=== PATIENT | female | born 1965 | race Caucasian/White ===

== ENCOUNTER → 2021-11-27 11:25 | Outpatient (BNVA) | payer OTHER, SELFPAY | PROVIDERS: PCP Pediatrics; Visit Provider Physician Assistant Medical | DX: S60.011A Contusion of right thumb without damage to nail, initial encounter (principal); W23.0XXA Caught, crushed, jammed, or pinched between moving objects, initial encounter | CPT/HCPCS: 73130; 99203 ==

== ENCOUNTER → 2021-11-29 10:03 | Outpatient (BNVA) | payer OTHER, SELFPAY | PROVIDERS: PCP Pediatrics; Visit Provider Internal Medicine | DX: S60.011A Contusion of right thumb without damage to nail, initial encounter (principal); X58.XXXA Exposure to other specified factors, initial encounter | CPT/HCPCS: 99213 ==

== ENCOUNTER → 2021-12-11 13:19 | Outpatient (BNVA) | payer OTHER, SELFPAY | PROVIDERS: PCP Pediatrics; Visit Provider Internal Medicine | DX: S60.011A Contusion of right thumb without damage to nail, initial encounter (principal); X58.XXXA Exposure to other specified factors, initial encounter | CPT/HCPCS: 36415; 85027; 85610; 85730; 99213 ==

== ENCOUNTER → 2021-12-24 10:19 | Outpatient (BNVA) | payer OTHER, SELFPAY | PROVIDERS: PCP Pediatrics; Visit Provider Internal Medicine | DX: S69.91XD Unspecified injury of right wrist, hand and finger(s), subsequent encounter (principal); X58.XXXD Exposure to other specified factors, subsequent encounter | CPT/HCPCS: 99213 ==

== ENCOUNTER 2025-06-02 13:38 | Outpatient (AMB) | payer BC, SELFPAY ==
--- OUTSIDE RECORDS SUMMARY | 2022-12-24 13:05 | XMS_ITS | Encounter Summary ---
Author Organization [facility] Address [address] [place] [phone] Phone Care Team Providers Care Ekg Technician Name Role Phone Constantin Ortiz MD Primary Care Provider + Encounter Details Date Type Department Care Team (Late st Contact Info) Description 12/24/2022 2:05 PM EDT Hospital Encounter [facility] [address] [place] [address] Mary Yarbrough CNP [address] [place] [address] [email or web address] Social History Tobacco Use Types Packs/Day Years Used Date Smoking Tobacco: Every Day Smokeless Tobacco: Never Education Answer Date Recorded Are you interested in more education? Not on brianda e 11/09/2022 Are you concerned about learning? Not on file 11/09/2022 No 11/09/2022 No 11/09/2022 Digital Access Answer Date Recorded No 12/08/2022 No 12/08/2022 Reliable internet access at home? Not on file 12/08/2022 Device with a working camera? Not on file Comments Unknown Sex and Gender Information Value Date Recorded Sex Assigned at Not on file Legal Sex Female 3:01 PM EDT Gender Identity Not on file Sexual Orientation Not on file documented as of this encounter Plan of Treatment Upcoming Encounters Date Type Department Care Team (Late st Contact Info) Description 06/07/2025 9:15 AM EST Office Visit [address] [address] Vesta Griffin PA [address] [place] [address] Nidhi Voss, PT 10 [place] [address] [email or web address] 06/15/2025 3:00 PM EST Office Visit [address] [address] Vesta Griffin PA [address] [place] [address] Nidhi Voss, PT 10 [place] [address] [email or web address] 06/22/2025 2:15 PM EST Office Visit [address] [address] Vesta Griffin PA [address] [place] [address] Nidhi Voss, PT 10 [place] [address] [email or web address] documented as of this encounter Procedures Procedure Name Priority Date/Time Associated Diagnosis Comments XR CHEST PA AND LATERAL 2 VIEWS Urgent/patient waiting 12/24/2022 2:06 PM EDT Fever, unspecified Acute cough documented in this encounter Results * XR CHEST PA AND LATERAL 2 VIEWS (12/24/2022 2:06 PM EDT) Anatomical Region Laterality Modality Chest Computed Radiogr aphy 12/24/2022 2:09 PM EDT Impressions 12/24/2022 2:31 PM EDT No acute abnormality. ATTESTATION: I, Maddison Tao as teaching physician, have reviewed the images for this case and if necessary edited the report originally created by Tyree Caban. Narrative 12/24/2022 2:31 PM EDT XR CHEST PA AND LATERAL 2 VIEWS COMPARISON: None FINDINGS: Devices/Tubes/Lines: None. Lungs: The lungs are clear. No focal consolidation or pulmonary edema. Pleura: No pleural effusion or pneumothorax. Heart/Mediastinum: Normal heart and mediastinum. Bones/Soft Tissues: No significant skeletal abnormality. Procedure Note Maddison Tao MD - 12/24/2022 XR CHEST PA AND LATERAL 2 VIEWS COMPARISON: None FINDINGS: Devices/Tubes/Lines: None. Lungs: The lungs are clear. No focal consolidation or pulmonary edema. Pleura: No pleural effusion or pneumothorax. Heart/Mediastinum: Normal heart and mediastinum. Bones/Soft Tissues: No significant skeletal abnormality. IMPRESSION: No acute abnormality. ATTESTATION: I, Maddison Tao as teaching physician, have reviewed theimages for this case and if necessary edited the report originally createdby Tyree Caban. Mary Yarbrough AVIATION MECHANIC IMG XR CHEST Final Resul t documented in this encounter Visit Diagnoses Not on filedocumented in this encounter Care Teams Ekg Technician Relationship Specialty Start Date End Date Constantin Ortiz MD [address] [place] [phone] PCP - General Internal Medicine 03/14/21 documented as of this encounter Additional Source Comments The information contained in this document represents components of the legal health record. It is not the complete legal health record.[facility]
--- NOTE | 2025-06-02 13:39 | A.PHYSOV_ITS ---
Vital Signs 06/02/25 13:44 Height 5 ft 4 in Weight 130 lb BMI 22.3 Intake Visit Reasons: MRI followup Intake Note: Patient is a 60 year old female here to review her MRI. Clocksmith Required: No Allergies Penicillins Allergy (Unknown, Verified 06/02/25 13:46) Unknown Sulfa (Sulfonamide Antibiotics) Allergy (Unknown, Verified 06/02/25 13:46) Unknown HPI Comments Details: History of Present Illness The patient is a 60-year-old individual presenting with hip pain and back pain management. The patient reports that a previous injection in the hip bursa provided relief, although there is still some soreness upon pressure. The patient experiences sharp, intermittent pain that sometimes radiates from the back to the leg, described as a pinching sensation. The pain is alleviated by changing positions and using a heating pad, and the patient occasionally takes naproxen or Advil for relief. The patient's MRI shows mild to moderate degenerative disc disease and varying degrees of arthritis in the back, with moderate bilateral narrowing at L4-5, more pronounced on the left side. This narrowing may contribute to the development of sciatica, although no obvious pinched nerve is present. The patient has been engaging in physical therapy and exercises to improve flexibility and strength, although the therapy was paused after the injection to allow for rest. The patient is considering resuming physical therapy or continuing with home exercises, and is exploring the possibility of joining a water-based exercise program. Additionally, the MRI revealed cysts in the kidneys and a cyst in the liver, which are being monitored by the patient's primary care provider. Pain Description - Onset: Intermittent sharp pain - Quality: Sharp, pinching sensation - Location: Left side of back radiating to leg - Exacerbating factors: Pressure on the area - Relieving factors: Changing positions, heating pad, naproxen, Advil [facility] Surgical History (Updated 06/02/25 @ 13:50 by Magalys Akhtar MA) H/O hernia repair H/O bilateral oophorectomy Social History Alcohol intake: current Alcohol intake frequency: other Comment: socially Patient Tobacco Use Status: Never used Tobacco Use of substances other than those prescribed or required for medical reasons: No Current occupational status: employed Review of Systems Narrative Review of Systems - Musculoskeletal: Reports intermittent sharp pain in back radiating to leg, soreness in hip bursa. - Neurological: Denies consistent radiating pain into the leg. - Gastrointestinal: Denies any symptoms related to hepatic cyst. - Renal: Denies any symptoms related to renal cysts. Physical Exam Exam Exam: Physical Exam Lumbar Spine: Examination of her lumbar spine, there is no visible swelling or deformity. She is tender to lower lumbar facets. She is otherwise nontender. Full range of motion of the lumbar spine. She does have an increase in pain with facet loading. Special Tests: Lhermittes sign was negative Heel Toe walk is normal Left straight leg raise: Negative Right straight leg raise: Negative Special tests Sapphire test is negative Ganslen's test is negative SI Joint compression test negative Jay test negative Piriformis stretch is negative Lower Extremities: Full range of motion bilateral lower extremities. No calf pain or edema. Neuro: Sensation: Intact to lower extremities bilaterally Strength L2 (Psoas): 5/5 on the left and 5/5 on the right. L3 (Quads): 5/5 on the left and 5/5 on the right. L4 (Ant tibialis): 5/5 on the left and 5/5 on the right. L5 (EHL) 5/5 on the left and 5/5 on the right. S1 (Gastroc): 5/5 on the left and 5/5 on the right. DTR L4: (Patellar) Left 2 Right 2 S1: (Achilles) Left 2 Right 2 Babinski Downgoing No pathologic clonus. No involuntary movement. Vital Signs: BMI result Body Mass Index 22.3 Assessment & Plan Assessment & Plan (1) Lumbar radiculopathy: Code(s): M54.16 - Radiculopathy, lumbar region Category: Medical (2) Lumbar spondylosis: Code(s): M47.816 - Spondylosis without myelopathy or radiculopathy, lumbar region Category: Medical (3) Trochanteric bursitis: Code(s): M70.60 - Trochanteric bursitis, unspecified hip Category: Medical Plan Pain Management - Affect: Pain impacts mobility, causing limping and requiring rest after physical therapy. - Analgesia: Uses naproxen and Advil for pain relief, which helps alleviate symptoms. - Adverse Effects: None reported from medications. - Activities of Daily Living: Pain affects ability to perform exercises and participate in physical therapy. - Aberrant Drug Related Behaviors: None reported. Plan Patient was informed and verbally consented to the use of an ambient scribe for clinic note documentation during this visit. 1. Bursitis The patient reports improvement in hip pain following a bursa injection, with residual soreness upon pressure. Continued monitoring of symptoms is advised, and further injections may be considered if pain persists. 2. Degenerative Disc Disease The MRI indicates mild to moderate degenerative disc disease. Management inclu caroline maintaining physical activity and considering physical therapy to improve flexibility and strength. Home exercises are recommended if physical therapy is not pursued. 3. Arthritis The patient has varying degrees of arthritis in the back. Management involves maintaining an active lifestyle and considering physical therapy or home exercises to manage symptoms and improve joint function. 4. Sciatica Moderate bilateral narrowing at L4-5 may contribute to sciatica. Options include epidural injections if back pain radiates into the thigh. Monitoring symptoms and considering further interventions if necessary is advised. If the patient would like to pursue epidural injection recommend left L4 TFESI. 5. Renal Cysts Renal cysts were identified on MRI. The patient is advised to follow up with [facility] primary care provider for further evaluation and monitoring. 6. Hepatic Cyst A hepatic cyst was noted on MRI. The patient should consult with their primary care provider for further assessment and potential ultrasound evaluation. Coding Level of Care Code Tele Est Pt Level 3 (54230) Diagnoses Lumbar radiculopathy M54.16 Lumbar spondylosis M47.816 Trochanteric bursitis M70.60
[2025-06-02 13:44] VITALS: BMI 22.3
--- OUTSIDE RECORDS SUMMARY | 2025-06-02 19:05 | XMS_ITS | Clinical Summary ---
Author Organization [facility] Address [address] [place] [phone] Phone Care Team Providers Care Flaker Tender Name Role Phone Constantin Ortiz MD Primary Care Provider + Allergies Active Allergy Reactions Criticality Noted Date Comments Penicillins Hives 03/14/2021 Sulfa (Sulfonamide Antibiotics) Rash Low 07/2020 Medications loratadine (CLARITIN) 10 mg tablet Take 10 mg by mouth daily. Active fluticasone propionate (FLONASE) 50 mcg/actuation nasal spray 1 spray by Nasal route daily. Active lisinopril (PRINIVIL,ZESTR IL) 10 MG tablet Take 1 tablet by mouth every morning. 3 Active albuterol 90 mcg/actuation inhaler Inhale 2 puffs into the lungs every 6 (six) hours as needed. 8.5 g 3 Active ADVAIR HFA 230-21 mcg/actuation inhaler Inhale 2 puffs into the lungs 2 (two) times a day. Active albuterol 2.5 mg /3 mL (0.083 %) nebulizer solution Take 1 Vial by nebulization every 6 hours as needed for Wheezing or Shortness of Breath for up to 180 days. 4 Active albuterol 90 mcg/actuation inhaler Inhale 1 puff into the lungs every 6 (six) hours as needed. 5 Active lisinopril (PRINIVIL,ZESTR IL) 20 MG tablet Take 1 tablet by mouth daily. 5 Active predniSONE (DELTASONE) 20 MG tablet Take 1 tablet (20 mg total) by mouth daily. 5 tablet 5 Active Active Problems Problem Noted Date Diagnosed Date COPD, severe 05/08/2023 Overview (10/04/2024): 05/05 - PFT: FEV1/FVC 48%. FEV1 1.25 and 48%. FVC 79%. Abnormal CT scan, chest 07/22/2012 Overview (10/04/2024): 07/26 RML lesion. Repeat 6 mo 01/23 stable. Repeat 12-18 mo 12/26 increased RML density. 03/28 stable. Repeat 12 mo. 11/26 stable, repeat 1 yr 05/30 stable 08/03 LDCT stable Hypercholesteremia 07/20/2012 Overview (10/04/2024): 05/03 ASCVD 9% (1.9%) Allergic rhinitis 12/04/2006 Overview (10/04/2024): seasonal Anxiety 12/04/2006 Overview (10/04/2024): 11/17--high stress, working 7d, 70hrs per week. HTN (hypertension) 12/04/2006 Overview (10/04/2024): 11/17 assoc with stress--catapress patch Encounters Date Type Department Care Team Description 04/18/2025 3:00 PM EDT Office Visit [address] [address] Vesta Griffin PA Menard-Johnston, Erin, PT Trochanteric bursitis of left hip (Primary Dx) 04/13/2025 3:00 PM EDT Office Visit [address] [address] Vesta Griffin PA Menard-Johnston, Erin, PT Trochanteric bursitis of left hip (Primary Dx) 04/11/2025 3:00 PM EDT Office Visit [facility] [address] [place] [address] Vesta Griffin PA Menard-Johnston, Nidhi, PT Trochanteric bursitis of left hip (Primary Dx) 04/06/2025 3:00 PM EDT Office Visit [address] [address] Vesta Griffin, AMARJIT Voss, Nidhi, PT Trochanteric bursitis of left hip (Primary Dx) 04/04/2025 3:00 PM EDT Office Visit [address] [address] Vesta Griffin, AMARJIT Voss, Nidhi, PT Trochanteric bursitis of left hip (Primary Dx) 03/30/2025 7:00 AM EDT Office Visit [address] [address] Vesta Griffin, AMARJIT Voss, Nidhi, PT Trochanteric bursitis of left hip (Primary Dx) 03/28/2025 3:00 PM EDT Office Visit [address] [address] Vesta Griffin, AMARJIT Voss, Nidhi, PT Trochanteric bursitis of left hip (Primary Dx) from Last 3 Months Immunizations No known immunizations Social History Tobacco Use Types Packs/Day Years Used Date Smoking Tobacco: Every Day Smokeless Tobacco: Never Tobacco Cessation:Ready to Q uit: Not Asked; Counseling Given: Not Answered Education Answer Date Recorded Are you interested [...] on file Sexual Orientation Not on file Last Filed Vital Signs Vital Sign Reading Time Taken Comments Blood Pressure 160/96 10/04/2024 7:39 PM EDT Pulse 91 10/04/2024 6:49 PM EDT Temperature 36.7 C (98.1 F) 10/04/2024 6:49 PM EDT Respiratory Rate 16 10/04/2024 6:49 PM EDT Oxygen Saturation 95% 10/04/2024 6:49 PM EDT Inhaled Oxygen Concentration - - Weight 56.7 kg (125 lb) 12/24/2022 1:27 PM EDT p er pt Height - - Body Mass Index - - Plan of Treatment Upcoming Encounters Date Type Department Care Team (Late st Contact Info) Description 06/07/2025 9:15 AM EST Office Visit [address] [address] Vesta Griffin PA [address] [place] [address] Nidhi Voss, PT 10 [place] [address] [email or web address] 06/15/2025 3:00 PM EST Office Visit [address] [address] Vesta Griffin PA [address] [place] [address] Nidhi Voss, PT [address] [place] [address] 06/22/2025 2:15 PM EST Office Visit [address] [address] Vesta Griffin PA [address] [place] [address] Nidhi Voss, PT [address] [place] [address] [email or web address] Health Maintenance Due Date Last Done Comments Adult Td,Tdap Booster 1964 DEPRESSION SCREENING 1976 SMOKING Hx and SMOKELESS TOB ACCO SCREENING 01/14/1977 HEPATITIS C SCREENING 01/14/1982 HIV ONE-TIME SCREENING (18-6 5 YEARS) 01/14/1982 PNEUMOCOCCAL VACCINES (50+ y ears) (1 of 2 - PCV) 01/14/1983 PAP SMEAR 01/14/1985 MAMMOGRAM 2004 COLOGUARD 01/14/2009 COLONOSCOPY 01/14/2009 COLORECTAL CANCER SCREENING 01/14/2009 FIT TEST 01/14/2009 FOBT 01/14/2009 SIGMOIDOSCOPY 01/14/2009 VIRTUAL COLONOSCOPY 01/14/2009 RSV VACCINE (1 - Risk 50-74 years 1-dose series) 01/14/2014 ZOSTER VACCINES (1 of 2) 01/14/2014 CREATININE LEVEL 03/14/2022 03/14/2021 POTASSIUM LEVEL 03/14/2022 03/14/2021 INFLUENZA VACCINE (#1) 2025 COVID-19 VACCINE (1 - 2024-2 6 season) 2025 BLOOD PRESSURE 04/06/2025 10/04/2024 LIPID PANEL 01/25/2028 01/24/2023 HEPATITIS A VACCINES Aged Out No long er eligible based on patient's age to complete this topic HIB VACCINES Aged Out No longer eligi ble based on patient's age to complete this topic IPV VACCINES Aged Out No longer eligi ble based on patient's age to complete this topic MENINGOCOCCAL VACCINES (ACWY) Aged Out No longer eligible based on patient's age to complete this topic MENINGOCOCCAL VACCINES (B) Aged Out N o longer eligible based on patient's age to complete this topic Medical Devices Not on file Procedures Procedure Name Priority Date/Time Associated Diagnosis Comments COMPREHENSIVE METABOLIC PANEL (CMP) Routine 03/14/2021 4:26 PM EDT Benign paroxysmal positional vertigo, unspecified laterality from Last 3 Months or Most Recently Relevant to Health Maintenance Results * Comprehensive metabolic panel (03/14/2021 4:26 PM EDT) SODIUM 142 133 - 146 mmol/L [facility] POTASSIUM 5.0 3.3 - 5.1 mmol/L [facility] CHLORIDE 105 96 - 108 mmol/L [facility] CO2 26 21 - 35 mmol/L [facility] BUN 19 6 - 19 mg/dL [facility] CREATININE 0.80 0.5 - 1.5 mg/dL [facility] GLUCOSE 91 70 - 99 mg/dL [facility] ALBUMIN 4.7 3.9 - 4.8 g/dL [facility] TOTAL PROTEIN 7.4 6.5 - 8.0 g/dL [facility] CALCIUM 10.3 8.4 - 10.3 mg/dL [facility] ALKALINE PHOSPHATASE 69 39 - 117 U/L [facility] TOTAL BILIRUBIN 0.2 0.0 - 1.2 mg/dL [facility] AST 21 0 - 37 U/L [facility] ALT 12 0 - 40 U/L [facility] GLOBULIN 2.7 1 - 4.8 g/dL [facility] EGFR 82 >59 mL/min/1.7 3m2 [facility] Comment:Estimated glomerular filtration rate calculated using the CKD-EPI equation. ANION GAP 16 10 - 20 mmol/L [facility] Blood 03/14/2021 4:26 PM EDT 03/16/2021 11:54 AM EDT us Corey [facility] BLOOD BKR ORDERABLES Fi nal Result [facility] [address] [place] [address] from Last 3 Months or Most Recently Relevant to Health Maintenance Insurance [facility] OUT STATE PPO [employer] OUT OF STATE PPO BL[employer] OUT OF STATE PPO [employer] OUT OF STATE PPO [facility] OUT OF STATE PPO [facility] OUT OF STATE PPO Care Teams Flaker Tender Relationship Specialty Start Date End Date Constantin Ortiz MD [address] [place] [phone] PCP - General Internal Medicine 03/14/21 Additional Source Comments The information contained in this document represents components of the legal health record. It is not the complete legal health record.[facility]
--- OUTSIDE RECORDS SUMMARY | 2025-06-02 19:05 | XMS_ITS ---
Author Name [facility] Organization Unknown Care Team Organization Name Specialty Phone Email Start Date End Da te [facility] 07/22/2022 03/01/2024 [facility] 05/21/2022 03/01/2024
== END 2025-06-02 14:34 | disposition home or self-care (01) ==
PROVIDERS: PCP Pediatrics; Visit Provider Physician Assistant
DX: M54.16 Radiculopathy, lumbar region (principal); M47.816 Spondylosis without myelopathy or radiculopathy, lumbar region; M70.60 Trochanteric bursitis, unspecified hip
CPT/HCPCS: 99213